=== PATIENT | female | born 1970 | race Caucasian/White ===

== ENCOUNTER 2019-08-10 14:25 | Emergency (ER) | payer OTHER, SELFPAY ==
[2019-08-10 14:36] VITALS: BP 159/103; PULSE 104; RESP 16; TEMP 37; O2SAT 98; BMI 37.8
--- NOTE | 2019-08-10 14:53 | ED_ITS ---
Entered by Jamila Meier, acting as scribe for Documented by User: Sunday Li DO 08/11/19 06:09 HPI - Abdominal Pain General: Chief Complaint: Abdominal Pain Stated Complaint: Left side pain Time Seen by Provider: 08/10/19 14:50 Source: patient Mode of arrival: ambulatory Limitations: no limitations History of Present Illness: HPI narrative: 49 yo f came to the er pov for left sided abd pain. Onset was 5 days ago. Pt states that this has been going on since Thursday. 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 is the pts urologist. Pt has not had a scan in almost 4 years. MD elicited complaint: abdominal pain Pertinent past history: none Onset (ago): day(s) (5 days ago) Pain Consistency: intermittent Location: LUQ Severity: mild Quality: stabbing Radiation: none Migration to: no migration Relieving factors: nothing Associated Symptoms: Reports no associated symptoms; Denies bloating, chills, coffee ground emesis, constipation, diarrhea, dysuria, fever(s), hematochezia, hematemesis, melena and vomiting Related Data: Patient : No Review of Systems General: Reports: other (negative unless marked) Const: Denies: fever, chills, body aches, change in appetite, fatigue or malaise ENMT: Denies: throat pain, ear pain, nasal discharge or nasal congestion Card: Denies: chest pain, edema, shortness of breath on exertion or shortness of breath when lying down Resp: Denies: shortness of breath, productive cough or non-productive cough GI: Reports: abdominal pain; Denies: vomiting, vomiting blood, coffee grounds in vomit, diarrhea, constipation, bloating, blood in stool or black tarry stool : Denies: flank pain, difficulty urinating, painful urination, urinary frequency or urinary urgency Skin/Breast: Denies: rash or itching PFSH ED PFSH: Social History Smoking and tobacco status: never smoked Physical Exam Const: COMMON NORMALS: average body habitus, oriented x3 and alert GENERAL APPEARANCE: cooperative, comfortable, well kempt and well developed NUTRITIONAL APPEARANCE: obese ORIENTATION/CONSCIOUSNESS: Yes awake, Yes oriented to person and Yes oriented to place HENMT: COMMON NORMALS: normocephalic, head/scalp atraumatic, EAC's normal, TM's normal bilaterally, external nose normal, moist oral mucous membranes and oropharynx normal HEAD & SCALP: normocephalic and atraumatic NOSE: external nose normal EXTERNAL AUDITORY CANAL: EAC's normal TYMPANIC MEMBRANE: TM's normal bilaterally MOUTH: oral and palatal mucosa normal, lip normal and tongue normal THROAT: posterior oropharynx normal and tonsils normal Eye: COMMON NORMALS: PERRL, EOMs intact bilaterally, conjunctivae normal and no scleral icterus CONJUNCTIVA: Yes conjunctivae normal PUPIL: Yes PERRL Neck/C-Spine: COMMON NORMALS: full ROM, no lymphadenopathy, supple, no meningeal signs and thyroid normal THYROID: thyroid normal and asymmetrical Lymph: LYMPHATIC: no lymphadenopathy noted Resp: COMMON NORMALS: normal respiratory effort, no retractions, no use of accessory muscles and clear to auscultation bilaterally AUSCULTATION: clear to auscultation bilaterally Cardio: COMMON NORMALS: regular rate and regular rhythm RATE: regular rate RHYTHM: regular rhythm HEART SOUNDS: no murmurs GI: COMMON NORMALS: soft to palpation and no hepatosplenomegaly PALPATION: Yes soft, Yes tender Details: LLQ and LUQ and Yes no hepatosplenomegaly : COMMON NORMALS: Yes no CVA tenderness BLADDER/KIDNEY EXAM: Yes no CVA tenderness Back/Pelvis: COMMON NORMALS: no CVA tenderness LUMBAR SPINE/LOWER BACK: Yes normal to inspection Extremity: COMMON NORMALS: no clubbing, cyanosis or edema, no calf tenderness and no pedal edema Neuro: COMMON NORMALS: oriented x3 SENSORIUM/ORIENTATION: Yes alert, Yes oriented to person and Yes oriented to place MENINGEAL SIGNS: Yes no meningeal signs Psych: APPEARANCE: Yes well kempt Skin: COMMON NORMALS: no rashes or lesions noted and skin turgor normal GENERAL SKIN EXAM: no rashes or lesions noted and turgor normal Course ED course: Care transferred to Dr. Bajwa at change of shift CT is pending. Vital Signs: Vital signs: Vital Signs Temperature 98.6 F 08/10/19 14:36 Pulse Rate 91 08/10/19 19:28 Respiratory Rate 18 08/10/19 19:28 Blood Pressure 140/99 08/10/19 19:28 Pulse Oximetry 95 03/04/20 19:28 MDM - Abdominal Pain Lab Data: Labs: Lab Results 08/10/19 08/10/19 08/10/19 Range/Units 15:27 15:27 15:35 WBC 12.7 H (4.0-10.0) 10^3/ uL RBC 4.10 (4.1-5.3) 10^6/u L Hgb 12.1 (11.5-15.3) g/dL Hct 39.5 (37.0-47.0) % MCV 96.3 (81-99) fL MCH 29.5 (28.0-34.0) pg MCHC 30.6 (30.0-36.0) g/dL RDW 12.5 (12.1-15.1) % Plt Count 430 H (130-400) 10^3/c mm MPV 10.0 (7.4-10.4) fL Neut % (Auto) 65.3 % Lymph % (Auto) 22.7 % [place] % (Auto) 8.6 % Eos % (Auto) 2.7 % Baso % (Auto) 0.4 % Neut # (Auto) 8.3 H (1.8-7.7) 10^3/u L Lymph # (Auto) 2.9 (0.8-4.8) 10^3/u L [place] # (Auto) 1.1 H (0.2-0.9) 10^3/u L Eos # (Auto) 0.4 (0.0-0.8) 10^3/u L Baso # (Auto) 0.1 (0.0-0.1) 10^3/u L Nucleated RBC % (a uto) 0 % Nucleated RBCs # 0.0 /100WBC Sodium 140 (136-145) mmol/L Potassium 3.9 (3.5-5.1) mmol/L Chloride 104 (98-107) mmol/L Carbon Dioxide 25 (22-29) mmol/L Anion Gap 14.9 (5-19) BUN 10 (6-20) mg/dL Creatinine 1.1 H (0.5-0.9) mg/dL GFR Calculation 53.2 L (90-130) mL/min Glucose 121 H (65-115) mg/dL Calcium 9.3 (8.5-10.5) mg/dL Total Bilirubin 0.2 (0.15-1.2) mg/dL AST 28 (0-32) U/L ALT 28 (0-33) U/L Alkaline Phosphata se 134 H (35-105) IU/L Total Protein 7.9 (6.6-8.7) g/dL Albumin 3.7 (3.5-5.2) g/dL Globulin 4.2 (1.3-4.6) g/dL Urine Color Yellow (Yellow) Urine Appearance Clear (CLEAR) Urine pH 7 (5-7) Ur Specific Gravit y 1.005 (1.005-1.030) Urine Protein Neg (Negative) Urine Glucose (UA) Norm (Normal) Urine Ketones Negative (Negative) Urine Blood Neg (Negative) Urine Nitrate Negative (Negative) Urine Bilirubin Neg (NEGATIVE) Urine Urobilinogen Norm (Negative) mg/dL Ur Leukocyte Regina ase Negative (Negative) Discharge Plan Discharge Patient Disposition: Home, Self-Care Clinical Impression: Diverticulitis Condition: Stable Prescriptions: [place] 5-325 mg tablet 1 tab PO Q6H PRN (Reason: pain) Qty: 14 RF: 0 Zofran 4 mg tablet 4 mg PO QID PRN (Reason: nausea and vomiting) Qty: 14 RF: 0 Augmentin 875-125 mg tablet 1 tab PO BID Qty: 14 RF: 0 No Action Multiple Vitamins Tablet 1 tab PO DAILY RF: 0 Tylenol 325 mg Tablet 325 mg PO QID PRN (Reason: Pain) RF: 0 levothyroxine 100 mcg tablet 100 mcg PO DAILY RF: 0 Vitamin C 500 mg Tablet 500 mg PO DAILY RF: 0 Aleve 220 mg Tablet 220 mg PO BID PRN (Reason: Pain) RF: 0 ibuprofen 200 mg Tablet 200 mg PO Q6H PRN (Reason: Pain) RF: 0 Discharge Orders: Discharge Order (Routine); Ordered 08/10/19 Ordered By: Latisha Bajwa Referrals: Hammad Vela, [facility]AGE HAND [Primary Care Provider] - Discharge Diet: Advance as tolerated Discharge Activity: Resume usual activity Patient Instructions: Diverticulitis (ED) Discharge Date/Time: 08/10/19 19:29 Coding Level of Care Code ED Terminal Superintendent for Chg Fwd Exam Comprehensive Documented by User: Latisha Bajwa MD 08/10/19 19:04 HPI - Abdominal Pain General: Chief Complaint: Abdominal Pain Stated Complaint: Left side pain Time Seen by Provider: 08/10/19 14:50 History of Present Illness: Associated Symptoms: Reports fever(s); Denies chills, diarrhea, dysuria, nausea and vomiting Review of Systems Const: Reports: fever; Denies: chills, body aches or change in appetite Eyes: Denies: blurry vision or eye discomfort ENMT: Denies: throat pain or dental pain Card: Denies: chest pain Resp: Denies: shortness of breath GI: Reports: abdominal pain; Denies: nausea, vomiting or diarrhea : Denies: painful urination Musc: Denies: neck pain or back pain Skin/Breast: Denies: rash Neuro: Denies: headache Psych: Denies: depression [place]/Lymph: Denies: easy bruising All/Imm: Denies: hives PFSH ED PFSH: Social History Smoking and tobacco status: never smoked Course Vital Signs: Vital signs: Vital Signs Temperature 98.6 F 08/10/19 14:36 Pulse Rate 91 08/10/19 19:28 Respiratory Rate 18 08/10/19 19:28 Blood Pressure 140/99 08/10/19 19:28 Pulse Oximetry 95 08/10/19 19:28 MDM - Abdominal Pain MDM Narrative: Medical decision making narrative: Eladia presents here with abdominal pain is found to have diverticulitis. Patient has no signs of perforation or abscess and pain is controlled here. White count is minimally elevated. Patient is stable for discharge will place on Augmentin along with pain meds. She is to follow-up with her primary care doctor in 3 to 5 days. She is return to the ER if worsening. She understands and agrees to this plan. Lab Data: Labs: Lab Results 08/10/19 08/10/19 08/10/19 Range/Units 15:27 15:27 15:35 WBC 12.7 H (4.0-10.0) 10^3/ uL RBC 4.10 (4.1-5.3) 10^6/u L Hgb 12.1 (11.5-15.3) g/dL Hct 39.5 (37.0-47.0) % MCV 96.3 (81-99) fL MCH 29.5 (28.0-34.0) pg MCHC 30.6 (30.0-36.0) g/dL RDW 12.5 (12.1-15.1) % Plt Count 430 H (130-400) 10^3/c mm MPV 10.0 (7.4-10.4) fL Neut % (Auto) 65.3 % Lymph % (Auto) 22.7 % [place] % (Auto) 8.6 % Eos % (Auto) 2.7 % Baso % (Auto) 0.4 % Neut # (Auto) 8.3 H (1.8-7.7) 10^3/u L Lymph # (Auto) 2.9 (0.8-4.8) 10^3/u L [place] # (Auto) 1.1 H (0.2-0.9) 10^3/u L Eos # (Auto) 0.4 (0.0-0.8) 10^3/u L Baso # (Auto) 0.1 (0.0-0.1) 10^3/u L Nucleated RBC % (a uto) 0 % Nucleated RBCs # 0.0 /100WBC Sodium 140 (136-145) mmol/L Potassium 3.9 (3.5-5.1) mmol/L Chloride 104 (98-107) mmol/L Carbon Dioxide 25 (22-29) mmol/L Anion Gap 14.9 (5-19) BUN 10 (6-20) mg/dL Creatinine 1.1 H (0.5-0.9) mg/dL GFR Calculation 53.2 L (90-130) mL/min Glucose 121 H (65-115) mg/dL Calcium 9.3 (8.5-10.5) mg/dL Total Bilirubin 0.2 (0.15-1.2) mg/dL AST 28 (0-32) U/L ALT 28 (0-33) U/L Alkaline Phosphata se 134 H (35-105) IU/L Total Protein 7.9 (6.6-8.7) g/dL Albumin 3.7 (3.5-5.2) g/dL Globulin 4.2 (1.3-4.6) g/dL Urine Color Yellow (Yellow) Urine Appearance Clear (CLEAR) Urine pH 7 (5-7) Ur Specific Gravit y 1.005 (1.005-1.030) Urine Protein Neg (Negative) Urine Glucose (UA) Norm (Normal) Urine Ketones Negative (Negative) Urine Blood Neg (Negative) Urine Nitrate Negative (Negative) Urine Bilirubin Neg (NEGATIVE) Urine Urobilinogen Norm (Negative) mg/dL Ur Leukocyte Regina ase Negative (Negative) Imaging Data ^: CT Abd/Pel: Radiologist's impression: [place] [address] CT Scan Report Signed with Addenda Patient: Eladia Stokes Unit #: [id number] : [id number] Age/Sex: 49 / F ADM Date: 08/10/19 Loc: ER Room/Bed: Attending Dr: Ordering Provider/Ordering MD: Sunday Li DO Date of Service: 08/10/19 Procedure(s): CT abdomen pelvis w con* [id number] Accession Number(s): [id number] Report Number: [id number]/CT abdomen pelvis w con* [id number] THIS REPORT CONTAINS FINDINGS THAT MAY BE CRITICAL TO PATIENT CARE. The findings were verbally communicated via telephone conference with Sunday Li at 6:48 PM CAREER DEVELOPER on 08/10/2019. The findings were acknowledged and understood. Radiation Dose CTDIVOL = (mGy): DLP = 1689.23 (mGy-cm) Addendum Dictated By: Elroy Cerna Addendum Signed By: Elroy Cerna Signed Date/Time: 08/10/19 185 0 Addendum Cosigned By: PROCEDURE INFORMATION: Exam: CT Abdomen And Pelvis With Contrast Exam date and time: 08/10/2019 6:06 PM Age: 49 years old Clinical indication: Abdominal pain; Localized; Left; Prior surgery; Surgery date: 6+ months; Surgery type: Hyst; Additional info: Abd pain TECHNIQUE: Imaging protocol: Computed tomography of the abdomen and pelvis with intravenous contrast. Total DLP: 1689.23 mGy-cm Radiation optimization: All CT scans at this facility use at least one of these dose optimization techniques: automated exposure control; mA and/or kV adjustment per patient size (includes targeted exams where dose is matched to clinical indication); or iterative reconstruction. Contrast material: VISI; Contrast volume: 95 ml; Contrast route: IV; COMPARISON: [place]dom[place] [id number] 03/16/2017 10:53 AM and ultrasound of the kidneys 08/24/2013 and 08/27/2015. FINDINGS: Lungs: Lung bases clear. Liver: Hepatomegaly at 22 cm. Gallbladder and bile ducts: Status post cholecystectomy. Pancreas: Normal. No ductal dilation. Spleen: Calcified splenic granulomas. Adrenals: Normal. No mass. 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 No visible nephrolithiasis. Right kidney without evidence of significant pelvocaliectasis. No visible nephrolithiasis. No visible ureterolithiasis or ureterectasis. Stomach and bowel: Examination reveals uncomplicated distal descending colonic diverticulitis. Focal inflammatory response. No visible abscess. No extraluminal gas. No associated reactive ascites within the pouch of [place]. Appendix: Appendix not inflamed. Intraperitoneal space: See Stomach And Bowel Finding. Vasculature: Unremarkable. No abdominal aortic aneurysm. Lymph nodes: Unremarkable. No enlarged lymph nodes. Bladder: Unremarkable as visualized. Reproductive: Status post hysterectomy. Bones/joints: Moderate facet arthrosis L5/S1. No visible acute osseous abnormality. Soft tissues: Unremarkable. Other findings: Obesity. CT/CT abdomen pelvis w con* [id number] IMPRESSION: 1. Uncomplicated acute distal descending colonic diverticulitis. 2. Status post hysterectomy without visible complication. 3. 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 4. Other nonurgent, nonemergent, and chronic findings discussed in text. Discharge Plan Discharge Patient Disposition: Home, Self-Care Clinical Impression: Diverticulitis Condition: Stable Prescriptions: [place] 5-325 mg tablet 1 tab PO Q6H PRN (Reason: pain) Qty: 14 RF: 0 Zofran 4 mg tablet 4 mg PO QID PRN (Reason: nausea and vomiting) Qty: 14 RF: 0 Augmentin 875-125 mg tablet 1 tab PO BID Qty: 14 RF: 0 No Action Multiple Vitamins Tablet 1 tab PO DAILY RF: 0 Tylenol 325 mg Tablet 325 mg PO QID PRN (Reason: Pain) RF: 0 levothyroxine 100 mcg tablet 100 mcg PO DAILY RF: 0 Vitamin C 500 mg Tablet 500 mg PO DAILY RF: 0 Aleve 220 mg Tablet 220 mg PO BID PRN (Reason: Pain) RF: 0 ibuprofen 200 mg Tablet 200 mg PO Q6H PRN (Reason: Pain) RF: 0 Discharge Orders: Discharge Order (Routine); Ordered 08/10/19 Ordered By: Latisha Bajwa Referrals: Hammad Vela, [facility] HAND [Primary Care Provider] - Discharge Diet: Advance as tolerated Discharge Activity: Resume usual activity Patient Instructions: Diverticulitis (ED) Discharge Date/Time: 08/10/19 19:29 Coding Level of Care Code ED Terminal Superintendent for Chg Fwd Exam Comprehensive The documentation recorded by the Hardeep gu Stephanie Lyn, accurately reflects the service I personally performed and the decisions made by Guillermo frey Curtis L, DO Aug 10, 2019 14:25
[2019-08-10 15:32] LABS: Basophils # 0.1 10^3/uL (0.0-0.1); Basophils % 0.4 %; Eosinophils # 0.4 10^3/uL (0.0-0.8); Eosinophils % 2.7 %; Hematocrit 39.5 % (37.0-47.0); Hemoglobin 12.1 g/dL (11.5-15.3); Lymphocytes # 2.9 10^3/uL (0.8-4.8); Lymphocytes % 22.7 %; Mean Corpuscular HGB Conc 30.6 g/dL (30.0-36.0); Mean Corpuscular Hemoglobin 29.5 pg (28.0-34.0); Mean Corpuscular Volume 96.3 fL (81-99); Monocytes # 1.1 10^3/uL (0.2-0.9); Monocytes % 8.6 %; Neutrophils # 8.3 10^3/uL (1.8-7.7); Neutrophils % 65.3 %; Nucleated Red Blood Cells % 0 %; Platelet Count 430 10^3/cmm (130-400); Red Cell Distribution Width 12.5 % (12.1-15.1); White Blood Count 12.7 10^3/uL (4.0-10.0)
[2019-08-10 15:45] LABS: Alanine Aminotransferase 28 U/L (0-33); Albumin Level 3.7 g/dL (3.5-5.2); Alkaline Phosphatase 134 IU/L (35-105); Anion Gap 14.9 (5-19); Aspartate Amino Transferase 28 U/L (0-32); Blood Urea Nitrogen 10 mg/dL (6-20); Calcium 9.3 mg/dL (8.5-10.5); Carbon Dioxide 25 mmol/L (22-29); Chloride 104 mmol/L (98-107); Globulin 4.2 g/dL (1.3-4.6); Glomerular Filtration Rate 53.2 mL/min (90-130); Glucose 121 mg/dL (65-115); Potassium 3.9 mmol/L (3.5-5.1); Sodium 140 mmol/L (136-145); Total Bilirubin 0.2 mg/dL (0.15-1.2); Total Protein 7.9 g/dL (6.6-8.7)
[2019-08-10 16:14] LABS: Add Urine Microscopic? NO
[2019-08-10 16:17] LABS: Bilirubin Urine Neg (NEGATIVE); Blood Urine Neg (Negative); Glucose Urine UA Norm (Normal); Ketones Urine Negative (Negative); Leukocyte Esterase Urine Negative (Negative); Nitrate Urine Negative (Negative); Protein Urine Neg (Negative); Specific Gravity, Urine 1.005 (1.005-1.030); Urine Appearance Clear (CLEAR); Urine Color Yellow (Yellow); Urobilinogen Urine Norm (Negative); pH Urine 7 (5-7)
--- NOTE | 2019-08-10 16:40 | CTR_ITS ---
PROCEDURE INFORMATION: Exam: CT Abdomen And Pelvis With Contrast Exam date and time: 08/10/2019 6:06 PM Age: 49 years old Clinical indication: Abdominal pain; Localized; Left; Prior surgery; Surgery date: 6+ months; Surgery type: Hyst; Additional info: Abd pain TECHNIQUE: Imaging protocol: Computed tomography of the abdomen and pelvis with intravenous contrast. Total DLP: 1689.23 mGy-cm Radiation optimization: All CT scans at this facility use at least one of these dose optimization techniques: automated exposure control; mA and/or kV adjustment per patient size (includes targeted exams where dose is matched to clinical indication); or iterative reconstruction. Contrast material: VISI; Contrast volume: 95 ml; Contrast route: IV; COMPARISON: [place]dom[place] [id number] 03/16/2017 10:53 AM and ultrasound of the kidneys 08/24/2013 and 08/27/2015. FINDINGS: Lungs: Lung bases clear. Liver: Hepatomegaly at 22 cm. Gallbladder and bile ducts: Status post cholecystectomy. Pancreas: Normal. No ductal dilation. Spleen: Calcified splenic granulomas. Adrenals: Normal. No mass. 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 No visible nephrolithiasis. Right kidney without evidence of significant pelvocaliectasis. No visible nephrolithiasis. No visible ureterolithiasis or ureterectasis. Stomach and bowel: Examination reveals uncomplicated distal descending colonic diverticulitis. Focal inflammatory response. No visible abscess. No extraluminal gas. No associated reactive ascites within the pouch of [place]. Appendix: Appendix not inflamed. Intraperitoneal space: See Stomach And Bowel Finding. Vasculature: Unremarkable. No abdominal aortic aneurysm. Lymph nodes: Unremarkable. No enlarged lymph nodes. Bladder: Unremarkable as visualized. Reproductive: Status post hysterectomy. Bones/joints: Moderate facet arthrosis L5/S1. No visible acute osseous abnormality. Soft tissues: Unremarkable. Other findings: Obesity. CT/CT abdomen pelvis w con* [id number] IMPRESSION: 1. Uncomplicated acute distal descending colonic diverticulitis. 2. Status post hysterectomy without visible complication. 3. 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 4. Other nonurgent, nonemergent, and chronic findings discussed in text. Radiation Dose CTDIVOL = (mGy): DLP = 1689.23 (mGy-cm)
[2019-08-10] MEDS: sodium chloride 0.9% 1,000 ML 999 ML IV (17:39)
[2019-08-10] MEDS: ondansetron 2 mg/ML SDV 2 mL 4 MG IVP (17:48)
[2019-08-10] MEDS: iodixanol 320 mg/mL 100mL Btl 95 ML IV (18:23)
[2019-08-10 19:28] VITALS: BP 140/99; PULSE 91; RESP 18; O2SAT 95
== END 2019-08-10 19:29 | disposition home or self-care (01) ==
PROVIDERS: Family Medicine; Emergency Provider Emergency Medicine; Family Provider Nurse Practitioner Family; PCP Nurse Practitioner Family
DX: K57.32 Diverticulitis of large intestine without perforation or abscess without bleeding (principal); N13.30 Unspecified hydronephrosis
CPT/HCPCS: 12345; 36415; 74177; 80053; 81003; 85025; 96360; 96361; 96374; 99283; J2405; J7030; Q9967

== ENCOUNTER 2019-12-15 07:26 | Outpatient (CLI) | payer OTHER, SELFPAY ==
--- NOTE | 2019-12-15 07:30 | MM_ITS ---
WS: [id number] BILATERAL DIGITAL SCREENING MAMMOGRAM WITH CAD CLINICAL INFORMATION: SCREENING HISTORY: Screening mammogram. No current complaints. COMPARISON: July 22, 2016 TECHNIQUE: Bilateral CC and MLO views. FINDINGS: Fatty-replaced breasts bilaterally. No suspicious focal mass, asymmetry, calcifications, or ux architect ural distortion. No evidence of malignancy. MM/[place] [id number] IMPRESSION: BI-RADS: 1-Negative FOLLOW UP: 1 Year Follow-up Recommend return to annual screening mammography.
== END 2019-12-15 07:27 | disposition home or self-care (01) ==
LOC: RADSHAW 07:26
PROVIDERS: PCP Nurse Practitioner Family; Visit Provider Obstetrics & Gynecology
DX: Z12.31 Encounter for screening mammogram for malignant neoplasm of breast (principal)
CPT/HCPCS: 77067

== ENCOUNTER → 2020-10-11 14:08 | Outpatient (BNVA) | payer OTHER, SELFPAY | PROVIDERS: PCP Nurse Practitioner Family; Visit Provider Nurse Practitioner Family | DX: N39.0 Urinary tract infection, site not specified (principal); N13.30 Unspecified hydronephrosis | CPT/HCPCS: 81003 ==

== ENCOUNTER → 2020-11-13 13:28 | Outpatient (BNVA) | payer OTHER, SELFPAY | PROVIDERS: PCP Nurse Practitioner Family; Visit Provider Urology | DX: R39.15 Urgency of urination (principal); N39.0 Urinary tract infection, site not specified; N13.30 Unspecified hydronephrosis | CPT/HCPCS: 81003 ==

== ENCOUNTER 2021-05-21 09:11 | Outpatient (CLI) | payer OTHER, SELFPAY ==
--- NOTE | 2021-05-21 09:30 | US_ITS ---
WS: [id number] ULTRASOUND RENAL TECHNIQUE: Ultrasound examination of both kidneys. CLINICAL INFORMATION: HYDRONEPHROSIS COMPARISON: CT August 10, 2019 FINDINGS: RIGHT: Right kidney is normal in size and appearance. Echogenicity: Normal. Cortical thickness: 1.2 cm; Normal. Hydronephrosis: None. Perinephric fluid: None. Right kidney measures: 12.7 cm x 4.3 cm x 4.7 cm. LEFT: Moderate left hydronephrosis Echogenicity: Normal. Cortical thickness: 0.9 cm; Normal. Hydronephrosis: Moderate Perinephric fluid: None. Left kidney measures: 11.4 cm x 4.4 cm x 4.5 cm. Normal visualized aorta. Normal bladder US/US renal BI* [id number] IMPRESSION: 1. Moderate left hydronephrosis is similar in appearance to the prior CT August 10, 2019. 2. No hydronephrosis in right kidney. 3. Normal bladder.
== END 2021-05-21 09:12 | disposition home or self-care (01) ==
LOC: RAD 09:13
PROVIDERS: PCP Nurse Practitioner Family; Visit Provider Urology
DX: N13.30 Unspecified hydronephrosis (principal); N39.0 Urinary tract infection, site not specified
CPT/HCPCS: 76770; 81003

== ENCOUNTER → 2022-05-22 09:41 | Outpatient (BNVA) | payer BC, SELFPAY | PROVIDERS: PCP Nurse Practitioner Family; Visit Provider Urology | DX: N39.0 Urinary tract infection, site not specified (principal); N13.30 Unspecified hydronephrosis | CPT/HCPCS: 81003 ==

== ENCOUNTER 2024-07-11 10:20 | Outpatient (CLI) | payer OTHER, SELFPAY ==
--- NOTE | 2024-07-11 10:31 | XRR_ITS ---
PROCEDURE INFORMATION: Exam: XR Chest Exam date and time: 07/11/2024 10:35 AM Age: 54 years old Clinical indication: Cough and fever since x1 week before [place]; Additional info: Acute bronchitis TECHNIQUE: Imaging protocol: Radiologic exam of the chest. Views: 2 views. COMPARISON: CT abdomen pelvis w con* [id number] 08/10/2019 6:33 PM FINDINGS: Lungs: Unremarkable. No consolidation. Pleural spaces: Unremarkable. No pleural effusion. No pneumothorax. Heart/Mediastinum: Unremarkable. No cardiomegaly. Bones/joints: Unremarkable. XR/XR chest 2V* [id number] IMPRESSION: No acute findings.
== END 2024-07-11 10:21 | disposition home or self-care (01) ==
PROVIDERS: PCP Nurse Practitioner Family; Visit Provider Nurse Practitioner Family
DX: J20.9 Acute bronchitis, unspecified (principal)
CPT/HCPCS: 71046

== ENCOUNTER 2024-08-03 14:01 | Outpatient (CLI) | payer OTHER, SELFPAY ==
--- NOTE | 2024-08-03 14:00 | MM_ITS ---
WS: [id number] BILATERAL 3D TOMOSYNTHESIS DIGITAL SCREENING MAMMOGRAPHY WITH CAD CLINICAL INFORMATION: SCREENING HISTORY: Screening mammogram. No current complaints. COMPARISON: 2020 TECHNIQUE: Bilateral CC and MLO views. FINDINGS: Scattered fibroglandular densities bilaterally. No suspicious focal mass, asymmetry, calcifications, or architectural distortion. No evidence of malignancy. MM/MM scr BI tomosynthesis [id number] IMPRESSION: DENSITY: There are scattered areas of fibroglandular density. BI-RADS: 1 - Negative. FOLLOW UP: 1 Year Follow-up Recommend return to annual screening mammography.
== END 2024-08-03 14:02 | disposition home or self-care (01) ==
LOC: MOBLMAM 14:04
PROVIDERS: PCP Nurse Practitioner Family; Visit Provider Nurse Practitioner Family
DX: Z12.31 Encounter for screening mammogram for malignant neoplasm of breast (principal); R92.323 Mammographic fibroglandular density, bilateral breasts
CPT/HCPCS: 77063; 77067